=== PATIENT | female | born 1940 | race Caucasian/White ===

== ENCOUNTER 2023-08-30 12:27 | Emergency (ER) | payer BC, MEDICARE ==
[2023-08-30] MEDS ORDERED: Ondansetron PF 4 MG/2 ML Vial ONE (12:43)
[2023-08-30 13:32] LABS: #Basophils 0.1 10x3/uL (0.0-0.2); #Eosinphils 0.1 10x3/uL (0.0-0.5); #Monocytes 0.8 10x3/uL (0.0-1.1); #Neutrophils 2.3 10x3/uL (1.5-8.4); %Basophils 0.9 % (0.0-2.0); %Eosinophils 2.6 % (0.0-6.0); %Lymphocytes 39.6 % (18.0-47.0); %Neutrophils 42.7 % (40.0-75.0); Hematocrit 39.9 % (34.9-44.5); Hemoglobin 13.3 g/dL (12.0-15.5); Mean Corpuscular HGB CONC 33.3 g/dL (32.0-36.0); Mean Corpuscular Hemoglobin 30.4 pg (27.0-33.0); Mean Corpuscular Volume 91.1 fl (81.6-98.3); Mean Platelet Volume 10.4 fl (7.4-10.4); Platelet Count 197 10x3/uL (150-450); RBC Distribution Width 13.1 % (11.5-14.5); Red Blood Cell (RBC) Count 4.38 10x6/uL (3.90-5.03); White Blood Cell (WBC) Count 5.4 10x3/uL (3.5-10.5)
[2023-08-30 13:44] LABS: Troponin I Less than 0.010 ng/mL (< 0.028)
[2023-08-30 14:02] LABS: Bilirubin Neg (Negative); Blood, Urine 10 (Negative); Clarity Clear (Clear); Glucose, Urine (Dipstick) Normal (Negative); Ketone, Urine 50 mg/dL (Negative); Leukocyte Negative (Negative); Nitrite Negative (Negative); Protein, Urine (Dipstick) 15 mg/dl (Neg-Trace); Specific Gravity, Urine 1.025 (1.005-1.030); Urobilinogen Normal mg/dL (Less than 2)
[2023-08-30 14:09] LABS: ALT (SGPT) 19 U/L (8-55); AST (SGOT) 25 U/L (5-34); Alkaline Phosphatase 67 U/L (40-110); Anion Gap 17 mmol/L (10-20); BUN (Urea Nitrogen) 10 mg/dL (9.8-20.1); Bilirubin, Total 0.5 mg/dL (0.2-1.2); Calc. Creatinine Clearance 0 mL/min (70-130); Calcium 8.9 mg/dL (7.8-10.44); Carbon Dioxide 21 mmol/L (23-31); Chloride 102 mmol/L (98-107); Estimated GFR 70; Glucose 103 mg/dL (83-110); Lipase 16 U/L (8-78); Sodium 136 mmol/L (136-145)
[2023-08-30] MEDS ORDERED: Meclizine HCl 25 MG TAB ONE (14:21)
[2023-08-30 14:38] LABS: CAUTI Indications for Culture Alt mental st,lethar; Squamous Epithelial None Seen HPF (0-3); WBC/HPF 0-3 HPF (0-3)
[2023-08-30 14:42] LABS: RBC/HPF 0-3 HPF (0-3)
[2023-08-30 14:43] LABS: Bacteria/HPF None Seen HPF (None Seen)
[2023-08-30 14:45] LABS: Urine Culture Reflex No No
== END 2023-08-30 15:00 | disposition home or self-care (01) ==
LOC: CSHERS 12:27
DX: R42 Dizziness and giddiness (principal); H92.09 Otalgia, unspecified ear
CPT/HCPCS: 36415; 51701; 70450; 71045; 80053; 81001; 83690; 83735; 84443; 84484; 85025; 93005; 96374; J2405